=== PATIENT | female | born 1960 | race Caucasian/White ===

== ENCOUNTER 2016-08-23 08:04 | Day surgery (SDC) | payer OTHER ==
[~2016-08-23] VITALS: Ht 154.9 cm; Wt 109.5 kg
[2016-08-23] MEDS ORDERED: ZANAFLEX2 M1 PO (09:23)
[2016-08-23] MEDS ORDERED: LEVOTHYROXINE75 MCG PO (09:23)
[2016-08-23] MEDS ORDERED: PRISTIQ50 MG PO (09:23)
[2016-08-23] MEDS ORDERED: PROTONIX40 MG PO (09:23)
[2016-08-23] MEDS ORDERED: BUTALB-APAP-CA1 EACH PO (09:24)
[2016-08-23] MEDS ORDERED: HYDROCHLOROTH12.5 M1 PO (09:24)
[2016-08-23] MEDS ORDERED: MOBIC7.5 MG PO (09:25)
[2016-08-23 09:30] VITALS: BP 134/68; Ht 154.9 cm; Wt 109.5 kg
[2016-08-23 09:33] LABS: APTT 30.2 SECONDS (22.8-39.4); HEMATOCRIT 34.7 % (36.0-48.0); HEMOGLOBIN 11.9 g/dL (12-16); INR 1.04 (0.85-1.17); LYMPHOCYTES 29.3 % (15-50); MCH 30.7 pg (26.0-34.0); MCHC 34.3 g/dL (31.0-37.0); MCV 89.4 fL (80.0-100.0); NEUTROPHILS 61.3 % (40-80); PLATELET COUNT 290 10x3/uL (130-400); PROTIME 13.4 SECONDS (11.6-15.0); RBC 3.88 10x6/uL (4.00-5.40); RDW 12.9 % (11.5-14.5); WBC 6.4 10x3/uL (4.8-10.8)
[2016-08-23 09:38] LABS: ALBUMIN 3.6 g/dL (3.4-5.0); ANION GAP 12.9 mmol/L (8-16); BILIRUBIN - TOTAL 0.26 mg/dL (0.2-1.3); CALCIUM 8.6 mg/dL (8.5-10.1); CREATININE - SERUM 0.9 mg/dL (0.6-1.3); POTASSIUM - SERUM 3.9 mmol/L (3.5-5.1); PROTEIN - SERUM 8.1 g/dL (6.4-8.2)
--- NOTE | 2016-08-23 10:00 | NUR ---
1000-DILATE ESOPHAGUS WTIH 16-18 CRE BALLOON. INFLATE TO 16 ENGLISH
--- NOTE | 2016-08-23 10:58 | NUR ---
DISCHARGE INSTRUCTIONS REVIEWED WITH PATIENT, DISCHARGED VIA WHEELCHAIR TO PRIVATE VEHICLE WITH SPOUSE
--- NOTE | 2016-08-24 10:50 | OP ---
PATIENT NAME: ALEKSANDR BOYER MEDICAL RECORD: [id number] :64 LOCATION:D.OPS ADMISSION DATE: SURGEON: CHRIS OWENS DO DATE OF OPERATION: 08/23/2016 PROCEDURE: EGD with biopsies and balloon dilation of an esophageal stricture. SCOPE: Olympus video gastroscope. MEDICATIONS: Propofol 200 mg IV per anesthesia. INDICATIONS FOR PROCEDURE: Dysphagia, heartburn, nausea, chronic hepatitis C. FINDINGS: Informed consent was given. The patient was made comfortable with the above medication. After reaching an adequate level of sedation by slow IV push, the patient was placed on her left side. The endoscope was then advanced under direct visualization through the mouth to the second portion of the duodenum. The upper and middle thirds of the esophagus appeared normal. In the distal third of the esophagus at the GE junction, there was some evidence of LA class B reflux induced esophagitis and an esophageal stricture. A balloon dilation was performed ____ stricture up to 18 mm maximum diameter without fluoroscopic guidance or guidewire placement. The endoscope was advanced into the stomach and retroflexed to view the cardia. There was a medium size sliding hiatal hernia measuring approximately 3 cm in length. The fundus and body of the stomach appeared normal. The scope was advanced down to the antrum and prepyloric region where the stomach appeared normal. Random gastric biopsies were performed to rule out H. pylori and sent for histology. The scope was advanced into the duodenum where the bulb and second portion of the duodenum appeared normal. Scope was then withdrawn from the patient. The patient tolerated the procedure well and there were no complications. IMPRESSION: 1. Reflux esophagitis grade B. 2. Esophageal stricture related to reflux, dilated up to 18 mm with a CRE balloon. 3. A 3 cm sliding hiatal hernia. PLAN AND RECOMMENDATIONS: 1. Discharge home when recovery parameters are met. 2. Continue current medications. 3. GERD diet and reflux precautions. 4. Repeat EGD as needed for dysphagia. TRANSINT:[id number] Voice Confirmation ID: [id number] DOCUMENT ID: [id number] CHRIS OWENS DO at 1050 CC: [id number] DICTATION DATE: 08/23/16 1016 HEEL SPLITTER: 08/23/162035 [facility] 08/23/16 [facility] [address] [place] [address]
== END 2016-08-23 10:58 | disposition home or self-care (01) ==
LOC: D.OPS 08:04
PROVIDERS: Anesthesiology
DX: K21.0 Gastro-esophageal reflux disease with esophagitis (principal); R13.10 Dysphagia, unspecified; R11.0 Nausea; K44.9 Diaphragmatic hernia without obstruction or gangrene; K22.2 Esophageal obstruction; J44.9 Chronic obstructive pulmonary disease, unspecified; I10 Essential (primary) hypertension; J45.909 Unspecified asthma, uncomplicated; E03.9 Hypothyroidism, unspecified; B19.20 Unspecified viral hepatitis C without hepatic coma

== ENCOUNTER 2016-09-06 07:56 | Day surgery (SDC) | payer OTHER ==
[~2016-09-06] VITALS: Ht 154.9 cm; Wt 109.5 kg
[~2016-09-06 07:56] MED LIST: BUTALB-APAP-CA1 EACH PO; HYDROCHLOROTH12.5 M1 PO; LEVOTHYROXINE75 MCG PO; MOBIC7.5 MG PO; PRISTIQ50 MG PO; PROTONIX40 MG PO; ZANAFLEX2 M1 PO
[2016-09-06 09:23] LABS: BASOPHILS 0.5 % (0-2); EOSINOPHILS 6.7 % (0-7); HEMATOCRIT 34.8 % (36.0-48.0); HEMOGLOBIN 11.3 g/dL (12-16); IMMATURE GRANULOCYTES 0.2 % (0-5); LYMPHOCYTES 21.2 % (15-50); MCH 29.7 pg (26.0-34.0); MCHC 32.5 g/dL (31.0-37.0); MCV 91.6 fL (80.0-100.0); MEAN PLATELET VOLUME 10.2 fL (7.4-10.4); MONOCYTES 10.2 % (2-11); NEUTROPHILS 61.2 % (40-80); PLATELET COUNT 253 10x3/uL (130-400); RDW 13.1 % (11.5-14.5); WBC 6.3 10x3/uL (4.8-10.8)
[2016-09-06] MEDS ORDERED: PROTONIX40 MG PO (09:25)
[2016-09-06 09:28] VITALS: BP 128/66; Ht 154.9 cm; Wt 109.5 kg
[2016-09-06 09:38] LABS: APTT 31.9 SECONDS (22.8-39.4); INR 1.15 (0.85-1.17); PROTIME 14.6 SECONDS (11.6-15.0)
[2016-09-06 09:55] LABS: ALBUMIN 3.4 g/dL (3.4-5.0); ALKALINE PHOSPHATASE 75 U/L (46-116); ALT (SGPT) 20 U/L (10-68); CALC OSMOLALITY 279 mosm/kg (275-300); CALCIUM 8.4 mg/dL (8.5-10.1); CARBON DIOXIDE 28.4 mmol/L (21.0-32.0); CHLORIDE - SERUM 104 mmol/L (98-107); CREATININE - SERUM 0.8 mg/dL (0.6-1.3); GLUCOSE 93 mg/dL (74-106); POTASSIUM - SERUM 3.8 mmol/L (3.5-5.1); PROTEIN - SERUM 7.2 g/dL (6.4-8.2); SODIUM 141 mmol/L (136-145); UREA NITROGEN 9 mg/dL (7-18); eGFR NON AFRICAN AMERICAN 79 mL/min (90-120)
--- NOTE | 2016-09-06 11:20 | NUR ---
DISCHARGED HOME VIA WHEELCHAIR TO PRIVATE VEHICLE WITH FRIEND
--- NOTE | 2016-09-07 10:26 | OP ---
PATIENT NAME: ALEKSANDR BOYER MEDICAL RECORD: [id number] :64 LOCATION:DOsvaldoOPS ADMISSION DATE: SURGEON: CHRIS OWENS DO DATE OF OPERATION: 09/06/2016 PROCEDURES: Colonoscopy with snare polypectomy. INDICATIONS: Screening colonoscopy, chronic hepatitis C, nausea, right lower quadrant pain. SCOPE: Fon video pediatric colonoscope. MEDICATIONS: Propofol 450 mg IV per anesthesia. ESTIMATED BLOOD LOSS: Minimal. WITHDRAWAL TIME: 15 minutes. FINDINGS: Informed consent was given. The patient was made comfortable with the above medication. After reaching an adequate level of sedation by slow IV push, the patient was placed on her left side. A digital rectal examination was performed and was normal. The endoscope was then advanced under direct visualization through the anus to the terminal ileum. The endoscope was slowly withdrawn as the mucosa was carefully examined. There was a sessile, adenomatous-appearing polyp present in the distal transverse colon. It was flat and measured approximately 8 mm in size. It was removed with a hot snare polypectomy in 1 piece and completely retrieved. The tissue surrounding that site was ablated with the tip of the snare. There was another polyp, which had a wide base and was semi-pedunculated in the rectum. It measured approximately 8 mm in size. It was removed with a hot snare polypectomy in 1 piece and completely retrieved. There was evidence of mild diverticulosis in the sigmoid colon. There was also small nonbleeding internal hemorrhoids visualized on retroflexion in the rectum. The remainder of the examination was normal. The scope was withdrawn from the patient. The patient tolerated the procedure well and there were no complications. IMPRESSION: 1. Polyps present in the transverse colon and rectum, both removed with hot snare polypectomy. 2. Nonbleeding, small internal hemorrhoids. 3. Mild diverticulosis of the sigmoid colon. PLAN AND RECOMMENDATIONS: 1. Discharge home when recovery parameters are met. 2. High-fiber diet. 3. Continue supplementation with fiber 1-2 tablespoons daily. 4. Follow up on biopsy specimen results. 5. Continue current medications. 6. Recall colonoscopy will be dependent on results of polyps removed. At this time, I anticipate that this will be 3 years based on what I believe was a sessile, serrated, adenomatous polyp. TRANSINT:[id number] Voice Confirmation ID: [id number] DOCUMENT ID: [id number] OPERATIVE REPORT [id number] ALEKSANDR BOYER,CHRIS Butterfield DO at 1026 CC: [id number] DICTATION DATE: 09/06/16 1014 INTERIOR ASSEMBLIES INSTALLER: 09/06/16 1059 [facility] 09/06/16 [place] [id number] [place] [id number]
== END 2016-09-06 11:20 | disposition home or self-care (01) ==
LOC: D.OPS 07:56
PROVIDERS: Anesthesiology
DX: Z12.11 Encounter for screening for malignant neoplasm of colon (principal); I10 Essential (primary) hypertension; K21.9 Gastro-esophageal reflux disease without esophagitis; B18.2 Chronic viral hepatitis C; M19.90 Unspecified osteoarthritis, unspecified site; E66.01 Morbid (severe) obesity due to excess calories; Z68.42 Body mass index [BMI] 45.0-49.9, adult; Z01.812 Encounter for preprocedural laboratory examination; D12.3 Benign neoplasm of transverse colon; K62.1 Rectal polyp

== ENCOUNTER 2016-12-24 16:38 | Emergency (ER) | payer OTHER ==
[2016-09-06 09:28] VITALS: BMI 45.6
[2016-12-24 17:30] LABS: BASOPHILS 0.6 % (0-2); EOSINOPHILS 3.6 % (0-7); HEMATOCRIT 33.4 % (36.0-48.0); HEMOGLOBIN 11.6 g/dL (12-16); IMMATURE GRANULOCYTES 0.4 % (0-5); LYMPHOCYTES 18.3 % (15-50); MCH 31.8 pg (26.0-34.0); MCHC 34.7 g/dL (31.0-37.0); MCV 91.5 fL (80.0-100.0); MEAN PLATELET VOLUME 9.8 fL (7.4-10.4); MONOCYTES 10.8 % (2-11); NEUTROPHILS 66.3 % (40-80); RBC 3.65 10x6/uL (4.00-5.40); RDW 15.2 % (11.5-14.5); WBC 8.5 10x3/uL (4.8-10.8)
[2016-12-24 17:31] LABS: PLATELET COUNT 360 10x3/uL (130-400)
[2016-12-24 17:41] LABS: APPEARANCE HAZY (CLEAR); BILIRUBIN NEGATIVE (NEGATIVE); COLOR STRAW (YELLOW); GLUCOSE NEGATIVE (NEGATIVE); KETONE NEGATIVE (NEGATIVE); LEUKOCYTE ESTERASE 2+ (NEGATIVE); NITRITE NEGATIVE (NEGATIVE); PROTEIN NEGATIVE (NEGATIVE); UROBILINOGEN NORMAL (NORMAL); WHITE CELLS - URINE >50 /hpf (0-5)
[2016-12-24 17:42] LABS: BACTERIA MODERATE /hpf (NONE SEEN)
[2016-12-24 18:03] LABS: ANION GAP 12.7 mmol/L (8-16); BILIRUBIN - TOTAL 0.36 mg/dL (0.2-1.3); CALCIUM 8.9 mg/dL (8.5-10.1); CARBON DIOXIDE 29.8 mmol/L (21.0-32.0); CREATININE - SERUM 2.5 mg/dL (0.6-1.3); PROTEIN - SERUM 8.1 g/dL (6.4-8.2)
[2016-12-24 18:04] LABS: POTASSIUM - SERUM 2.5 mmol/L (3.5-5.1)
== END 2016-12-24 19:20 | disposition home or self-care (01) ==
LOC: D.ER 16:38
PROVIDERS: Nurse Practitioner Acute Care
DX: A59.01 Trichomonal vulvovaginitis (principal); I12.9 Hypertensive chronic kidney disease with stage 1 through stage 4 chronic kidney disease, or unspecified chronic kidney disease; N18.9 Chronic kidney disease, unspecified; E87.6 Hypokalemia

== ENCOUNTER 2019-07-30 16:37 | Inpatient (IN) | payer MEDICAID ==
[~2019-07-30] VITALS: Ht 154.9 cm; Wt 128.6 kg
[~2019-07-30 16:37] MED LIST changes: +ADIPEX-P37.5 M1 PO; +ALDACTONE25 MG PO; +AMITIZA24 MCG PO; +ASPIRIN EC81 M1 PO; +ATIVAN0.5 MG PO; +BUMEX2 MG PO; +COLACE100 MG PO; +ESTRACE2 MG PO; +LAMICTAL25 MG PO; +MECLIZINE HCL12.5 MG PO; +MULTIGEN FOLIC1 EACH; +NEURONTIN600 MG PO; +PHENERGAN25 M1 PO; +POTASSIUM CHLO20 MEQ PO; +PREDNISONE20 MG PO; +PROMETRIUM100 MG PO; +REGLAN10 MG PO; +TESSALON PERLE100 MG PO; +TRAZODONE HCL150 MG PO; +TYLENOL W/CODEI1 TAB PO; +ZYLOPRIM100 MG PO
[2019-07-30 17:24] LABS: HEMATOCRIT 39.6 % (36.0-48.0); HEMOGLOBIN 12.8 g/dL (12-16); LYMPHOCYTES 22.9 % (15-50); MCH 29.8 pg (26.0-34.0); MCHC 32.3 g/dL (31.0-37.0); MCV 92.1 fL (80.0-100.0); MEAN PLATELET VOLUME 9.6 fL (7.4-10.4); NEUTROPHILS 69.1 % (40-80); PLATELET COUNT 326 10x3/uL (130-400); RDW 14.6 % (11.5-14.5); WBC 10.6 10x3/uL (4.8-10.8)
[2019-07-30 17:30] LABS: CALC OSMOLALITY 279 mosm/kg (275-300); CALCIUM 8.6 mg/dL (8.5-10.1); CARBON DIOXIDE 27.6 mmol/L (21.0-32.0); CHLORIDE - SERUM 102 mmol/L (98-107); CREATININE - SERUM 1.3 mg/dL (0.6-1.3); GLUCOSE 90 mg/dL (74-106); POTASSIUM - SERUM 4.8 mmol/L (3.5-5.1); SODIUM 138 mmol/L (136-145); UREA NITROGEN 24 mg/dL (7-18); eGFR NON AFRICAN AMERICAN 45 mL/min (90-120)
[2019-07-30 17:44] LABS: ALBUMIN 3.6 g/dL (3.4-5.0); ALKALINE PHOSPHATASE 83 U/L (30-120); ALT (SGPT) 23 U/L (10-68); BILIRUBIN - TOTAL 0.34 mg/dL (0.2-1.3); PRO BNP 127 pg/mL (0-125); PROTEIN - SERUM 7.4 g/dL (6.4-8.2)
[2019-07-30 17:50] LABS: TROPONIN-I < 0.017 ng/mL (0.000-0.060)
[2019-07-30 18:43] VITALS: BP 150/70
[2019-07-30 19:15] VITALS: BP 138/89
--- NOTE | 2019-07-30 19:20 | NUR ---
RECIEVED PATIENT FROM DAY SHIFT RN ALERT OX3. AMBULATORY.NO DISTRESS NOTED. V/S RECORDED. SATS 94 ON ROOM AIR. COMPLAINS OF CHRONIC BACK PAIN 02/15
[2019-07-30 20:00] VITALS: BP 155/74
--- NOTE | 2019-07-30 20:19 | NUR ---
REPORT CALLED TO JAGUAR ON MED 2.
--- NOTE | 2019-07-30 20:24 | NUR ---
TRANSPORTED PATIENT VIA WHEELCHAIR TO [facility]
--- NOTE | 2019-07-30 20:44 | NUR ---
RECEIVED REPORT FROM ER, PT ARRIVED VIA WHEELCHAIR, HISTORY AND MEDS COMPLETE, PROVIDED PT WITH A SANDWICH AND DRINK, DENIES ANY NEEDS AT THIS TIME, BED IS LOW, SRX2, CALL LIGHT IN REACH, WILL CONTINUE PLAN OF CARE
[2019-07-30 21:49] VITALS: BP 155/74; BMI 54.3
[2019-07-30] MEDS ORDERED: SYMBICORT 16010.2 GM INH (22:07)
[2019-07-30] MEDS ORDERED: SPIRIVA RESPIMAT4 G1 INH (22:08)
[2019-07-30] MEDS ORDERED: K-DUR20 MEQ PO (22:09)
[2019-07-30] MEDS ORDERED: DEPAKOTE125 MG PO (22:10)
[2019-07-30] MEDS ORDERED: ZYRTEC10 MG PO (22:10)
[2019-07-30] MEDS ORDERED: FLUTICASONE PRO16 GM NASAL (22:12)
[2019-07-30] MEDS ORDERED: TRELEGY ELLIPT1 EACH INH (22:13)
[2019-07-30] MEDS ORDERED: SINGULAIR10 MG PO (22:13)
[2019-07-30] MEDS ORDERED: MAGNESIUM OXID250 MG (22:14)
[2019-07-30] MEDS ORDERED: MUCINEX600 MG PO (22:14)
[2019-07-30] MEDS ORDERED: MECLIZINE HCL12.5 MG PO (22:15)
[2019-07-30] MEDS ORDERED: MULTI-DAY VITAM1 TAB PO (22:15)
[2019-07-31] VITALS: BP 111/60
[2019-07-31 04:00] VITALS: BP 103/56
--- NOTE | 2019-07-31 04:21 | NUR ---
I have reviewed this patient and I concur with the Shift Assessment completed by the Licensed Practical Nurse today this shift.
[2019-07-31 05:58] LABS: HEMATOCRIT 36.4 % (36.0-48.0); HEMOGLOBIN 11.8 g/dL (12-16); LYMPHOCYTES 36.1 % (15-50); MCHC 32.4 g/dL (31.0-37.0); MCV 92.6 fL (80.0-100.0); MEAN PLATELET VOLUME 9.7 fL (7.4-10.4); NEUTROPHILS 60.3 % (40-80); PLATELET COUNT 274 10x3/uL (130-400); RBC 3.93 10x6/uL (4.00-5.40); RDW 15.1 % (11.5-14.5)
[2019-07-31 05:59] LABS: WBC 6.5 10x3/uL (4.8-10.8)
[2019-07-31 06:17] LABS: ALBUMIN 3.1 g/dL (3.4-5.0); ANION GAP 12.1 mmol/L (8-16); BILIRUBIN - TOTAL 0.22 mg/dL (0.2-1.3); CALCIUM 8.3 mg/dL (8.5-10.1); CARBON DIOXIDE 29.1 mmol/L (21.0-32.0); CREATININE - SERUM 1.4 mg/dL (0.6-1.3); MAGNESIUM - SERUM 2.5 mg/dL (1.8-2.4); PHOSPHOROUS 3.5 mg/dL (2.5-4.9); POTASSIUM - SERUM 4.2 mmol/L (3.5-5.1); PROTEIN - SERUM 6.2 g/dL (6.4-8.2)
[2019-07-31 08:42] VITALS: BP 140/65
--- NOTE | 2019-07-31 10:10 | NUR ---
I have reviewed this patient and I concur with the Shift Assessment completed by the Licensed Practical Nurse today this shift.
[2019-07-31 10:52] VITALS: Ht 154.9 cm; Wt 128.6 kg
--- NOTE | 2019-07-31 12:13 | MORECARE ---
CASE MANAGEMENT DISCHARGE SUMMARY PATIENT: ALEKSANDR BOYER UNIT: [id number] ADM DATE: 07/30/19 AGE: 58 : 64 SEX: F ROOM/BED: D.9808 AUTHOR: JASON FRANCOIS PHYSICIAN: REFERRING PHYSICIAN: JALYN OLIVIER DO DATE OF SERVICE: 07/31/19 Discharge Plan Patient Name: ALEKSANDR BOYER Facility: [facility]:[place] : 1960 Planned Disposition: Home Anticipated Discharge Date: Discharge Date: Expected LOS: Initial Reviewer: [email or web address] Initial Review Date: 07/31/2019 Generated: 07/31/19 1:12 pm Patient Name: ALEKSANDR BOYER Page [id number] at 1213 All edits/amendments must be made on the electronic document DICTATION DATE: 07/31/19 1212 CUPOLA CHARGER: ALEXANDRA 07/31/19 1212 RPT#: [id number] DC DATE: STATUS: ADM IN [facility] [address] [place] [address] END OF REPORT
--- NOTE | 2019-07-31 12:21 | MORECARE ---
CASE MANAGEMENT DISCHARGE SUMMARY PATIENT: ALEKSANDR BOYER UNIT: [id number] ADM DATE: 07/30/19 AGE: 58 : 64 SEX: F ROOM/BED: D.2943 AUTHOR: JASON FRANCOIS PHYSICIAN: REFERRING PHYSICIAN: JALYN OLIVIER DO DATE OF SERVICE: 07/31/19 Discharge Plan Patient Name: ALEKSANDR BOYER Facility: [facility]:[place] : 1960 Planned Disposition: Home Anticipated Discharge Date: Discharge Date: Expected LOS: Initial Reviewer: [email or web address] Initial Review Date: 07/31/2019 Generated: 07/31/19 1:21 pm Comments DCP- Discharge Planning Updated by [email or web address]: Ruth Victoria on 07/31/19 11:[address] Patient Name: ALEKSANDR BOYER Admission Status: ER Accout number: [id number] Admission Date: 07-30-2019 : 1960 Admission Diagnosis: Attending: GRACIA Current LOS: 1 Anticipated DC Date: Planned Disposition: Home Primary Insurance: [place] PRIVATE OPTIONS [facility] Discharge Planning Comments: CM met with patient to complete initial dc planning assessment. CM educated patient on the CM role and verbal consent given by patient to complete assessment. Her spouse is in the room and verbal permission received to discuss discharge planning with spouse present. Patient lives alone. States her and her spouse are at this time. States he lives "down the [place], and comes over to help me". States her spouse assists her with putting on her shoes, drying her after her shower and driving her where she needs to go. At discharge patient plans to return and feels this is a safe discharge. CM discussed availability of home health, rehab services, and medical equipment. Patient denied known discharge needs at this time. States she has a CPAP and nebulizer and received them from [facility] Patient. CM will continue to follow and will assist as needed with dc plans/needs. Demolition Crane Operator: Ruth Victoria DCPIA - Discharge Planning Initial Assessment Updated by [email or web address]: Ruth Victoria on 07/31/19 12:19 pm * Is the patient Alert and Oriented? Yes * How many steps to enter\\exit or inside your home? Ramp/0 * PCP Dr. Dung Colbert - [facility] * Pharmacy [facility] in [place] * Preadmission Environment Home Alone * ADLs Partial Dependent * Partial ADLs (Assistance needed) Ambulation Bathing Dressing * Equipment Cane CPAP Nebulizer Rolling Walker Walker * List name and contact numbers for known caregivers / representatives who currently or will assist patient after discharge: Maikol Myrick - [facility] - [phone] * Verbal permission to speak to the caregivers and representatives has been obtained from the patient. Yes * Community resources currently utilized None * Additional services required to return to the preadmission environment? No * Can the patient safely return to the preadmission environment? Yes * Has this patient been hospitalized within the prior 30 days at any hospital? No Last DP export: 07/31/19 11:13 a Patient Name: ALEKSANDR BOYER Page [id number] at 1221 All edits/amendments must be made on the electronic document DICTATION DATE: 07/31/19 1221 GEAR REPAIR SUPERVISOR: ALEXANDRA 07/31/19 1221 RPT#: [id number] DC DATE: STATUS: ADM IN [facility] [address] [place] [address] END OF REPORT
[2019-07-31 17:33] VITALS: BP 132/65
[2019-07-31 19:30] VITALS: BP 97/48
--- NOTE | 2019-07-31 19:30 | NUR ---
ZACH FIGUEROA APRN, PATIENT C/O OF NAUSEA AND HEARTBURN. ORDERS GIVEN TO RESTART PROTONIX WHICH WAS ALREADY RESTART PATIENT RECEIVED A DOSE THIS AM. RESTART REGLAN. AND ZOFRAN 4MG IV Q 4HR PRN.
[2019-08-01 00:33] VITALS: BP 106/47
[2019-08-01 04:56] VITALS: BP 141/75
[2019-08-01 06:41] LABS: HEMATOCRIT 37.3 % (36.0-48.0); HEMOGLOBIN 11.9 g/dL (12-16); LYMPHOCYTES 27.2 % (15-50); MCH 29.5 pg (26.0-34.0); MCHC 31.9 g/dL (31.0-37.0); MCV 92.6 fL (80.0-100.0); MEAN PLATELET VOLUME 9.4 fL (7.4-10.4); NEUTROPHILS 63.9 % (40-80); PLATELET COUNT 263 10x3/uL (130-400); RBC 4.03 10x6/uL (4.00-5.40); RDW 14.3 % (11.5-14.5); WBC 6.4 10x3/uL (4.8-10.8)
[2019-08-01 06:58] LABS: ANION GAP 10.7 mmol/L (8-16); CALCIUM 8.5 mg/dL (8.5-10.1); CREATININE - SERUM 1.2 mg/dL (0.6-1.3); MAGNESIUM - SERUM 2.5 mg/dL (1.8-2.4); POTASSIUM - SERUM 4.7 mmol/L (3.5-5.1)
[2019-08-01 08:23] VITALS: BP 126/68
[2019-08-01] MEDS ORDERED: KEFLEX500 MG PO (11:50)
--- NOTE | 2019-08-01 13:18 | NUR ---
PT DC'D TO PRIVATE CAR HOME WITH AND DISCHARGE INSTRUCTIONS GIVEN. IV DC'D NO SWELLING OR REDNESS NOTED. VSS.
--- NOTE | 2019-08-02 08:25 | MORECARE ---
CASE MANAGEMENT DISCHARGE SUMMARY PATIENT: ALEKSANDR BOYER UNIT: [id number] ADM DATE: 07/30/19 AGE: 58 : 64 SEX: F ROOM/BED: D.9494 AUTHOR: ALESSANDRODOC PHYSICIAN: REFERRING PHYSICIAN: JALYN OLIVIER DO DATE OF SERVICE: 08/02/19 Discharge Plan Patient Name: ALEKSANDR BOYER Facility: [facility]:[place] : 1960 Planned Disposition: Home Anticipated Discharge Date: 08/01/19 Discharge Date: 08/01/2019 Expected LOS: 2 Initial Reviewer: [email or web address] Initial Review Date: 07/31/2019 Generated: 08/02/19 9:24 am DCP- Discharge Planning Updated by [email or web address]: Ruth Victoria on 07/31/19 11:[address] Patient Name: ALEKSANDR BOYER Admission Status: ER Accout number: [id number] Admission Date: 07-30-2019 : 1960 Admission Diagnosis: Attending: GRACIA Current LOS: 1 Anticipated DC Date: Planned Disposition: Home Primary Insurance: [place] PRIVATE OPTIONS [facility] Discharge Planning Comments: CM met with patient to complete initial dc planning assessment. CM educated patient on the CM role and verbal consent given by patient to complete assessment. Her spouse is in the room and verbal permission received to discuss discharge planning with spouse present. Patient lives alone. States her and her spouse are at this time. States he lives "down the hill, and comes over to help me". States her spouse assists her with putting on her shoes, drying her after her shower and driving her where she needs to go. At discharge patient plans to return and feels this is a safe discharge. CM discussed availability of home health, rehab services, and medical equipment. Patient denied known discharge needs at this time. States she has a CPAP and nebulizer and received them from [facility] Patient. CM will continue to follow and will assist as needed with dc plans/needs. Waiter/Waitress Third Class: Ruth Victoria DCPIA - Discharge Planning Initial Assessment Updated by [email or web address]: Ruth Victoria on 07/31/19 12:19 pm * Is the patient Alert and Oriented? Yes * How many steps to enter\\exit or inside your home? Ramp/0 * PCP Dr. Dung Colbert - [facility] * Pharmacy [facility] * Preadmission Environment Home Alone * ADLs Partial Dependent * Partial ADLs (Assistance needed) Ambulation Bathing Dressing * Equipment Cane CPAP Nebulizer Rolling Walker Walker * List name and contact numbers for known caregivers / representatives who currently or will assist patient after discharge: Maikol Myrick [facility] - [phone] * Verbal permission to speak to the caregivers and representatives has been obtained from the patient. Yes * Community resources currently utilized None * Additional services required to return to the preadmission environment? No * Can the patient safely return to the preadmission environment? Yes * Has this patient been hospitalized within the prior 30 days at any hospital? No Last DP export: 07/31/19 11:21 a Patient Name: ALEKSANDR BOYER Page [phone] at 0825 All edits/amendments must be made on the electronic document DICTATION DATE: 08/02/19823 APPLICATION ARCHITECT MANAGER: ALEXANDRA 08/02/19823 RPT#: [id number] DC DATE:08/01/19 STATUS: DIS IN [facility] [address] [place] [address] END OF REPORT
== END 2019-08-01 13:20 | disposition home or self-care (01) | DRG 291 ==
LOC: D.ER 16:37 → D.M2 17:37
PROVIDERS: Family Medicine; ADMIT Internal Medicine; ATTEND Internal Medicine
DX: I13.0 Hypertensive heart and chronic kidney disease with heart failure and stage 1 through stage 4 chronic kidney disease, or unspecified chronic kidney disease (principal); I50.31 Acute diastolic (congestive) heart failure; L03.116 Cellulitis of left lower limb; Z68.43 Body mass index [BMI] 50.0-59.9, adult; L03.115 Cellulitis of right lower limb; E66.01 Morbid (severe) obesity due to excess calories; N18.3 Chronic kidney disease, stage 3 (moderate); J44.9 Chronic obstructive pulmonary disease, unspecified; J45.909 Unspecified asthma, uncomplicated; F32.89 Other specified depressive episodes